=== PATIENT | female | born 1970 | race Caucasian/White ===

== ENCOUNTER 2017-12-02 10:05 | Inpatient (IN) ==
--- NOTE | 2017-12-01 22:37 | Discharge Summary ---
<Yessenia Rizo E - Last Filed: 12/01/17 22:35> Date of Encounter: 12/01/17 - Discharge Diagnosis (1) Osteoarthritis of right knee Priority: Primary Status: Chronic Qualifiers: Osteoarthritis type: unspecified Qualified Code(s): M17.11 - Unilateral primary osteoarthritis, right knee (2) Status post total right knee replacement Priority: Primary Status: Acute (3) Obesity Priority: Secondary Status: Chronic Qualifiers: Obesity type: unspecified obesity type Obesity classification: unspecified obesity classification Serious obesity comorbidity presence: unspecified whether serious comorbidity present Qualified Code(s): E66.9 - Obesity, unspecified (4) Bilateral edema of lower extremity Priority: Secondary Status: Chronic (5) Muscular dystrophy Priority: Secondary Status: Chronic (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 (7) HTN (hypertension) Priority: Secondary Status: Chronic Qualifiers: Hypertension type: unspecified Qualified Code(s): I10 - Essential (primary ) hypertension (8) Anxiety Priority: Secondary Status: Chronic (9) Depression Priority: Secondary Status: Chronic Qualifiers: Depression Type: unspecified Qualified Code(s): F32.9 - Major depressive disorder, single episode, unspecified (10) Sleep related hypoxia Priority: Secondary Status: Chronic (11) Dependence on nocturnal oxygen therapy Priority: Secondary Status: Chronic (12) Chronic pain Priority: Secondary Status: Chronic Qualifiers: Chronic pain type: other chronic pain Qualified Code(s): G89.29 - Other chronic pain - Discharge Medications Home Medications: Aspirin Enteric Coated [Aspirin EC] 325 mg PO DAILY 21 Days #21 tablet. [Rx] OxyCODONE Immed Rel [Roxicodone 5 MG] 5 mg PO Q6-8H PRN 7 Days #24 tablet [Rx] Amitriptyline [Elavil] 50 mg PO HS 12/02/17 [History] Baclofen [Lioresal] 5 mg PO TID 12/02/17 [History] Furosemide [Lasix] 20 mg PO DAILY 12/02/17 [History] Gabapentin [Neurontin] 800 mg PO QID 12/02/17 [History] Medroxyprogesterone Acetate [Provera] 10 mg PO DAILY 12/02/17 [History] Meloxicam [Mobic] 15 mg PO DAILY 12/02/17 [History] Morphine Immed Rel [Morphine Sulfate] 15 mg PO Q8HR 12/02/17 [History] Oxycodone HCl/Acetaminophen [Percocet 10-325 mg Tablet] 1 tab PO BID 12/02/17 [ History] diazePAM [Valium] 5 mg PO BID 12/02/17 [History] Allergies/Adverse Reactions: 3 Allergy/AdvReac Type Severity Reaction Status Date / Time No Known Allergies Allergy Verified 12/02/17 10:50 Primary care physician: Kings Salgado MD - Patient Status Disposition: Transfer Inpatient Rehab Fac Condition: Good - Discharge Instructions Follow Up With: Yessenia Rizo PAC [Physician Cardiovascular Or Nurse] - 12/10/17 2:45 pm (& also, , December 17, 2017 at 2:15 PM) Atul Almanza MD [Partnered Physician] - 12/30/17 5:45 pm Kings Salgado MD [Primary Care Provider] - - Hospital Course Hospital course: Ms. Lewis is a 47 year old female - Time Spent with Patient Total time spent providing and/or coordinating discharge services: <Atul Almanza - Last Filed: 12/05/17 06:50> Date of Encounter: 12/05/17 Time of Encounter: 06:49 - Discharge Diagnosis (1) Morbid obesity with BMI of 45.0-49.9, adult Priority: Secondary Status: Chronic (2) Osteoarthritis of right knee Priority: Primary Status: Chronic Qualifiers: Osteoarthritis type: unspecified Qualified Code(s): M17.11 - Unilateral primary osteoarthritis, right knee (3) Status post total right knee replacement Priority: Primary Status: Acute (4) Bilateral edema of lower extremity Priority: Secondary Status: Chronic (5) Muscular dystrophy Priority: Secondary Status: Chronic (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 (7) HTN (hypertension) Priority: Secondary Status: Chronic Qualifiers: Hypertension type: unspecified Qualified Code(s): I10 - Essential (primary ) hypertension (8) Anxiety Priority: Secondary Status: Chronic (9) Depression Priority: Secondary Status: Chronic Qualifiers: Depression Type: unspecified Qualified Code(s): F32.9 - Major depressive disorder, single episode, unspecified (10) Sleep related hypoxia Status: Chronic (11) Dependence on nocturnal oxygen therapy Priority: Secondary Status: Chronic (12) Chronic pain Priority: Secondary Status: Chronic Qualifiers: Chronic pain type: other chronic pain Qualified Code(s): G89.29 - Other chronic pain Primary care physician: Kings Salgado MD - Patient Status Functional capacity at discharge: uses cane/walker Overall status at discharge: patient is progressing back to baseline - Hospital Course Hospital course: Ms. Lewis is a 47 year old female Status post right total knee replacement The patient had an uneventful postoperative course. They received antibiotics and physical therapy and were discharged in stable condition. There will follow -up in the office in 2 weeks. - Time Spent with Patient Total time spent providing and/or coordinating discharge services:
--- NOTE | 2017-12-02 08:22 | Physician Discharge Referral ---
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 OxyLEV Immed Rel [Roxicodone 5 MG] 5 mg PO Q6-8H PRN 7 Days #24 tablet PRN Reason: Severe Pain Home Medications: Aspirin Enteric Coated [Aspirin EC] 325 mg PO DAILY 21 Days #21 tablet. [Rx] OxyCODONE Immed Rel [Roxicodone 5 MG] 5 mg PO Q6-8H PRN 7 Days #24 tablet [Rx] - Respiratory Orders Smoking Cessation: Smoking cessation has been advised. For more information, call the [place] Tobacco Quit Line at 3-639-QORM-NOW. - Ancillary Orders May use pressure relief devices daily prn, May go on SOPHIA w/family/respon constitution party w /meds at nurse discretion PRN, May consult with Dentist, Core Rescuer, Air Crew Member PRN - Mobility Orders Chair, Ambulate - Rehabiliation Orders Rehab Potential: Good Rehab Orders: Evaluation for Physical Therapy, Evaluation for Occupational Therapy Other: Total Knee replacement Precautions x 6 weeks Apply cold therapy wrap 3-6x/day for 20 minutes at a time. Encourage ambulation throughout the day and incentive spirometer 10x/hour. Elevate affected extremity above heart as tolerated. Brace: Wear knee immobilizer at night x 2 weeks. - Treatments Skin tear care topically daily PRN per policy List/Other: Opsite placed. Keep dressing intact until first follow up appointment. If > 50% saturated, notify office, remove dressing and place appropriate dressing back in place. Leave Zipline intact. Opsite dressing is water resistant, not water- proof. OK to shower, but do not get dressing wet. - Diet Orders Regular CERTIFICATION: I certify that the transfer of the above named patient to an Extended Care Facility is necessary for the continuing treatment of the diagnosis listed. The above information is true and accurate reflection of patient's current condition. Confidential - Redisclosure prohibited without a patient's written consent.
--- NOTE | 2017-12-02 08:27 | Physician Discharge Referral ---
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 For more information, call the [place] Tobacco Quit Line at 3-165-PNEO-NOW. - Dressing/Wound Care Site: right knee Type of Dressing/Treatments w/Frequency: Opsite placed. Keep dressing intact until first follow up appointment. If > 50% saturated, notify office, remove dressing and place appropriate dressing back in place. Leave Zipline intact. Opsite dressing is water resistant, not water- proof. OK to shower, but do not get dressing wet. - Diet/Nutrition Diet/Nutrition Orders: Regular - Activity Activity Orders: Up ad sharath, Ambulate, Chair, Walker Activity: List: Total Knee replacement Precautions x 6 weeks Apply cold therapy wrap 3-6x/day for 20 minutes at a time. Encourage ambulation throughout the day and incentive spirometer 10x/hour. Elevate affected extremity above heart as tolerated. Brace: Wear knee immobilizer at night x 2 weeks. - Services Needed Following services are medically necessary services: Nursing, Home Health Aide, Physical Therapy, Occupational Therapy - Transfer Medications Prescriptions: Aspirin Enteric Coated [Aspirin EC] 325 mg PO DAILY 21 Days #21 tablet. OxyCODONDonavan Immed Rel [Roxicodone 5 MG] 5 mg PO Q6-8H PRN 7 Days #24 tablet PRN Reason: Severe Pain Home Medications: Aspirin Enteric Coated [Aspirin EC] 325 mg PO DAILY 21 Days #21 tablet. [Rx] OxyCODONE Immed Rel [Roxicodone 5 MG] 5 mg PO Q6-8H PRN 7 Days #24 tablet [Rx] Certification: Further, I certify that my clinical findings support that this patient is homebound (i.e. absences from home require considerable and taxing effort and are for medical reasons or roman catholic services or infrequently or short duration when for other reasons) because: Homebound Reason: Post-surgery restriction and or conditions limit ability to leave home Attestation: My signature below is to certify that this patient is under my care and that I, or nurse practitioner, or a physician real estate assistant working with me, has a face-to- face encounter with this patient.
[2017-12-02] MEDS ORDERED: Gabapentin 300 MG CAPSULE PO ONE (10:26)
[2017-12-02] MEDS ORDERED: Famotidine 20 MG/2 ML VIAL IVP ONE (10:26)
[2017-12-02] MEDS ORDERED: Lidocaine -MPF 1% 2 ML VIAL ID ONE (10:51)
[2017-12-02] MEDS ORDERED: CeFAZolin Syr 3,000MG/30 ML 3,000 MG/30 ML SYRINGE IVPB ONE (10:51)
[2017-12-02] MEDS ORDERED: Ringers Solution, Lactated 500 ML IVC SCH (11:00)
[2017-12-02] MEDS ORDERED: *HR* Midazolam HCl 2 MG/2 ML VIAL ONE (11:06)
--- NOTE | 2017-12-02 11:42 | Anesthesia Evaluation PreOp ---
Date of Encounter: 12/02/17 Time of Encounter: 11:40 - Past History Planned Operation: Rt TKA Cardiac History: HTN Pulmonary History: LEXII Dx TAFE LECTURER History: Other (Muscular Dystrophy with Bilat LE weakness) Other Medical History: Other (Morbid Obesity) Anesthesia History: No Prior Anesthetic Complications : No Test: Negative Alcohol Use: none Drug use: none Medications and Allergies Aspirin Enteric Coated [Aspirin EC] 325 mg PO DAILY 21 Days #21 tablet. [Rx] OxyCODONE Immed Rel [Roxicodone 5 MG] 5 mg PO Q6-8H PRN 7 Days #24 tablet [Rx] Amitriptyline [Elavil] 50 mg PO HS 12/02/17 [History] Baclofen [Lioresal] 5 mg PO TID 12/02/17 [History] Furosemide [Lasix] 20 mg PO DAILY 12/02/17 [History] Gabapentin [Neurontin] 800 mg PO QID 12/02/17 [History] Medroxyprogesterone Acetate [Provera] 10 mg PO DAILY 12/02/17 [History] Meloxicam [Mobic] 15 mg PO DAILY 12/02/17 [History] Morphine Immed Rel [Morphine Sulfate] 15 mg PO Q8HR 12/02/17 [History] Oxycodone HCl/Acetaminophen [Percocet 10-325 mg Tablet] 1 tab PO BID 12/02/17 [ History] diazePAM [Valium] 5 mg PO BID 12/02/17 [History] 3 Allergy/AdvReac Type Severity Reaction Status Date / Time No Known Allergies Allergy Verified 12/02/17 10:50 - Meds/Allergy Pre-op Review Medications Reviewed: Yes Allergies Reviewed: Yes Beta Blockers on Current Med List: No Anesthesia Results - Labs HGB 13.0 HCT 40.6 PLT 245 Sodium 137 Pot 3.3 - Imaging EKG: pending Anesthesia Exam O2 Sat Height 1.68 m Height 1.68 m Height 1.68 m Weight 129.274 kg Weight 129.274 kg Weight 129.274 kg O2 Sat by Pulse Oximetry 96 O2 Sat by Pulse Oximetry 96 Vital Signs Temp Pulse Resp BP Pulse Ox 97.9 F 87 18 132/81 96 12/02/17 10:27 12/02/17 10:27 12/02/17 10:27 12/02/17 10:27 12/02/17 10:27 Height: 5'6 Weight: 285 lbs NPO (# of Hours): MN Pain Scale: 0 - HEENT Pupil (Motor): Pupils equal, EOMI Mallampati: III Teeth: Normal Oral Opening: Less than or equal to 3 - TAFE LECTURER LOC: Oriented TAFE LECTURER Motor: Normal Face, Deficit RUE, Deficit LUE, Deficit RLE, Deficit LLE TAFE LECTURER Sensory: Normal: RUE, LUE, RLE, LLE, Face - Cardiac Rhythm: Regular Murmur: None JVD: No Carotid Bruit: No - Pulmonary Breath Sounds: bilateral Clear Respiratory Effort: Symmetrical Anesthesia Assess/Plan ASA Score: 3 (MS Morbid Obesity) Modified Force Scale for Level of Consciousness: Cooperative, oriented, and tranquil Anesthetic Plan: Regional, MAC Monitoring Plan: Standard Monitors Recovery Plan: PACU (Discussed SAB with Adductor Canal Block, possible GA, agrees to proceed)
[2017-12-02] MEDS ORDERED: *HR* FentaNYL (PF) 100 MCG/2 ML VIAL ONE ×2 (11:49→13:33)
--- NOTE | 2017-12-02 11:49 | History & Physical Report ---
Date of Encounter: 12/02/17 Time of Encounter: 11:49 24 Hour HP Update - Instructions Instructions: If the History and Physical is less than 30 days old and was completed prior to A.M. admission and or procedure and has NOT been updated on calendar day of procedure please complete this update prior to performing procedure. - Update Patient reports changes in Medical Condition: No Changes in examination, assessment, or condition: No Changes in Medication: No Preop tests/diagnostics Reviewed: Yes Surgery Remains Indicated: Yes Consent for Planned Operative Procedure(s) Verified: Yes - Pre-Operative Checklist Preoperative Checklist Indicated: No Prophylactic Antibiotic Ordered: Yes Is VTE Prophylaxis Indicated?: Yes
[2017-12-02] MEDS ORDERED: Propofol 500 MG/50 ML INFUS..BTL ONE (11:52)
[2017-12-02] MEDS ORDERED: *HR* Ropivacaine/PF 0.5% 20 ML VIAL ONE (12:25)
[2017-12-02] MEDS ORDERED: Ethanol\\Acetic Acid\\Na Ace\\Ben 1,000 ML IRRIG.SOLN IR ONE (12:28)
[2017-12-02] MEDS ORDERED: Tetracaine/PF 20 MG/2 ML AMPUL ONE (12:29)
[2017-12-02] MEDS ORDERED: *HR* OxyCODONE Immed Rel 5 MG TABLET PO PRN (13:34)
[2017-12-02] MEDS ORDERED: *HR* Labetalol 20 MG/4 ML SYRINGE IVP PRN (13:34)
[2017-12-02] MEDS ORDERED: Ondansetron 4 MG/2 ML VIAL IVP ONE (13:34)
--- NOTE | 2017-12-02 13:46 | Anesthesia Procedures ---
Date of Encounter: 12/02/17 Time of Encounter: 13:44 Procedures: Anesthesia - Nerve Block Procedure Date: 12/02/17 Time: 13:15 Allergies/Adv Reactions: 3 Allergy/AdvReac Type Severity Reaction Status Date / Time No Known Allergies Allergy Verified 12/02/17 10:50 Pre-op Diagnosis: oa right knee Surgical Procedure: right tka Checklist: Correct Patient Identifier, Correct procedure, History checked Correct side: Right Blood Thinner: No Monitor Applied: EKG, BP, Pulse Oximetry Supplemental Oxygen via Nasal Cannula (L/min): 2 Sedation: Versed (mg): 2 Sedation: Fentanyl (mcg): 100 Indication: Post Op Analgesia Block Type: Femoral Catheter placed: No Sterile Technique: Yes Ultrasound used: Yes Anatomy identified: Yes Visual spread of Local: Yes Neuro Stimulation: Yes Nerve Stimulator Range: 0.2 - 0.4 mA Blood on Needle Aspiration: No Smooth Injection of Local: Yes Pain with Injection of Local: No Prep: Chlorhexadine Needle: 21 x 100 mm Stimuplex Local: Ropivacaine (0.5%) Volume (cc): 40 Number of Attempts: 1 Complications: None/effective block
[2017-12-02] MEDS ORDERED: Dexamethasone 4 MG/ML VIAL ONE (13:56)
[2017-12-02] MEDS ORDERED: Ondansetron 4 MG/2 ML VIAL ONE (13:56)
[2017-12-02] MEDS ORDERED: Ketorolac 30 MG/ML VIAL ONE (13:56)
--- NOTE | 2017-12-02 13:57 | Orthopedic Operative Note ---
Date of procedure: 12/02/17 Pre-op diagnosis: Right knee arthritis Post-op diagnosis: same Procedure: Procedure: Right robotic-assisted Total knee replacement Estimated blood loss:400 cc Hardware: Metal and polyethylene replacement. [place] Femur: 4 Tibia: 4 TS insert: 13 Patella: 3 Exam Under anesthesia: 0 degrees extension to degrees varus as calculated by the robot full flexion and no instability Procedural Notes: Grade 3 arthritic changes all 3 compartments. Operative procedure: The patient was brought to the operating room and placed on the operating room table. After general anesthesia was administered the operative knee was examined. Findings were noted in the exam under anesthesia. The operative extremity was prepped and draped in sterile surgical fashion. The patient received IV antibiotics prior to skin incision. A standard midline incision was made centered over the patella. The incision was made through the skin and subcutaneous tissue. A medial parapatellar tendon approach was performed. Care was taken to preserve tissue along the medial aspect of the patella. And to protect the patella tendon. The deep MCL was released off the medial tibia. The infra patella fat pad was excised. The patella was everted and cut was made at the level of the insertion of the quadriceps and patella tendon. The patella was sized to a 36 the guide was seated and the lug holes are drilled. Knee was brought into flexion. Patient noted to have grade 3 arthritic changes all 3 components. Steinmann pins were placed in the tibia and the femur for the tibial and femoral arrays respectively. Checkpoints were also placed in the tibia and the femur for calculation purposes. The knee including the femur and the tibial registered. Osteophytes, ACL and PCL were excised at this point. Extension and flexion were assessed with a valgus stress components were adjusted on the computer to balance the knee. Femoral cuts were made first with robotic assistance, these included the anterior cut posterior cuts chamfer cuts. Tibial cut was then performed with robotic assistance as well. Bone fragments were removed, as well as the medial and lateral meniscus. The size 4 femoral guide was seated box cut was made lug holes are drilled. The size 4 tibial tray was seated and prepared with the fin cutter. Trial reduction with the 13 TS Jinny revealed extension of 0 degree 2 degrees varus and full flexion. No varus valgus instability. Trial reduction revealed excellent patella tracking. All trial components were removed all bony surfaces were irrigated. The Tibia was seated followed by the femur, The Jinny size 13 was seated and secured patella. Patient had similar findings for motion and stability. The knee was closed by the PA. The knee was then irrigated out with 2 L of pulse irrigation. The extensor mechanism was closed with #2 FiberWire suture and #2 PDS suture. The subcutaneous tissue was then irrigated and closed deep with #1 PDS suture superficially with 0 PDS suture and skin was closed with zip tie The patient was then placed in a sterile dressing and a postoperative brace extubated and transferred to recovery room in stable condition. Anesthesia: GETA Surgeon: Atul Almanza Was there an tmd teacher assistant present: No Estimated blood loss (cc): 400 Condition: stable Disposition: PACU
--- NOTE | 2017-12-02 15:09 | Anesthesia Evaluation Post Op ---
Date of Encounter: 12/02/17 Time of Encounter: 15:15 - Vital Signs Vital Signs: Vital Signs/O2 Sat/Glucose, Most Current Temp Pulse Resp BP Pulse Ox 12/02/17 15:08 97.5 F L 84 16 141/87 97 12/02/17 14:58 85 14 140/86 96 12/02/17 14:48 89 14 145/95 96 12/02/17 14:38 97.2 F L 98 14 140/91 92 12/02/17 12:49 93 18 136/102 100 12/02/17 12:42 95 18 150/89 100 12/02/17 12:37 86 18 145/94 100 12/02/17 12:35 89 18 139/93 100 12/02/17 12:25 90 18 144/92 100 - Lungs Lungs: Clear Ascult./Percussion - Airway Airway: Non-obstructed - Cardiovascular Regular Rate - Mental Status Mental Status: Alert & Oriented, Answers Appropriately - Pain Pain Scale: 0 - Nausea Vomiting Nausea Vomiting: Not Present - Hydration Hydration: Tolerates oral liquids - Discharge PostOp Status: Transfer Patient to floor
[2017-12-02] MEDS ORDERED: Temazepam 15 MG CAPSULE PO PRN (15:24)
[2017-12-02] MEDS ORDERED: Ringers Solution, Lactated 1,000 ML IVC SCH (15:24)
[2017-12-02] MEDS ORDERED: Sennosides 8.6 MG TABLET PO PRN (15:24)
[2017-12-02] MEDS ORDERED: MOM Conc 10 ML UD.LIQ PO PRN (15:24)
[2017-12-02] MEDS ORDERED: Naloxone 0.4 MG/ML INJ IVP PRN (15:24)
[2017-12-02] MEDS ORDERED: Ondansetron 4 MG/2 ML VIAL IVP PRN (15:24)
[2017-12-02 15:25] LABS: Hematocrit 41.5 % (35.3-44.9); Hemoglobin 12.2 g/dL (11.5-15.4)
[2017-12-02] MEDS ORDERED: *HR* Morphine Immed Rel 15 MG TABLET PO SCH (16:00)
[2017-12-02] MEDS: Gabapentin 400 MG CAPSULE PO SCH ×2 (17:33→21:20)
[2017-12-02] MEDS: Baclofen 10 MG TABLET PO SCH ×2 (17:33→21:19)
[2017-12-02] MEDS: *HR* Enoxaparin 30 MG/0.3 ML SYRINGE SQ SCH (17:33)
[2017-12-02] MEDS ORDERED: *HR* Enoxaparin 30 MG/0.3 ML SYRINGE SQ SCH (18:00)
[2017-12-02] MEDS ORDERED: *HR* Morphine Immed Rel 30 MG TABLET PO SCH (18:30)
[2017-12-02] MEDS: *HR* Morphine Immed Rel 30 MG TABLET PO SCH (18:35)
[2017-12-02] MEDS: *HR* OxyCODONE/APAP 10/325 TABLET PO SCH (21:19)
[2017-12-02] MEDS: diazePAM 5 MG TABLET PO SCH (21:20)
[2017-12-02] MEDS: CeFAZolin Syr 3,000MG/30 ML 3,000 MG/30 ML SYRINGE IVPB SCH (21:20)
[2017-12-03] MEDS: *HR* Morphine Immed Rel 30 MG TABLET PO SCH ×3 (03:19→19:02)
[2017-12-03 05:22] LABS: Hematocrit 33.7 % (35.3-44.9); Hemoglobin 10.2 g/dL (11.5-15.4)
[2017-12-03] MEDS: *HR* Enoxaparin 30 MG/0.3 ML SYRINGE SQ SCH ×2 (05:24→17:15)
[2017-12-03] MEDS: CeFAZolin Syr 3,000MG/30 ML 3,000 MG/30 ML SYRINGE IVPB SCH (05:24)
[2017-12-03 06:25] LABS: BUN/Creatinine Ratio 20 (6-26); Blood Urea Nitrogen 11 mg/dL (6-20); Calcium 8.5 mg/dL (8.6-10.3); Carbon Dioxide 30 mEq/L (23-29); Chloride 105 mEq/L (98-107); Glucose 118 mg/dL (70-105); Osmolality,Calculated 288 (280-300); Potassium 4.3 mEq/L (3.5-5.1); Sodium 139 mEq/L (136-145); eGFR For African Americans > 60 (> 60); eGFR For Non-African Americans > 60 (> 60)
--- NOTE | 2017-12-03 08:37 | Orthopedics Progress Note ---
Date of Encounter: 12/03/17 Time of Encounter: 08:36 - Assessment and Plan (1) Morbid obesity with BMI of 45.0-49.9, adult Current Visit: Yes Status: Chronic (2) Osteoarthritis of right knee Current Visit: No Status: Chronic Qualifiers: Osteoarthritis type: unspecified Qualified Code(s): M17.11 - Unilateral primary osteoarthritis, right knee (3) Status post total right knee replacement Current Visit: No Status: Acute (4) Bilateral edema of lower extremity Current Visit: No Status: Chronic (5) Muscular dystrophy Current Visit: No Status: Chronic (6) Dercum's disease Current Visit: No Status: Chronic (7) HTN (hypertension) Current Visit: No Status: Chronic Qualifiers: Hypertension type: unspecified Qualified Code(s): I10 - Essential (primary ) hypertension (8) Anxiety Current Visit: No Status: Chronic (9) Depression Current Visit: No Status: Chronic Qualifiers: Depression Type: unspecified Qualified Code(s): F32.9 - Major depressive disorder, single episode, unspecified (10) Sleep related hypoxia Current Visit: No Status: Chronic (11) Dependence on nocturnal oxygen therapy Current Visit: No Status: Chronic (12) Chronic pain Current Visit: No Status: Chronic Qualifiers: Chronic pain type: other chronic pain Qualified Code(s): G89.29 - Other chronic pain Subjective Interval history: Patient was seen this morning doing well without complaints. Afebrile vital signs stable. Operative extremity: Neurovascularly intact Dressing clean dry and intact Calves nontender Assessment and plan: Continue with postoperative care Hematocrit 33 Objective Vital signs: Vital Signs Temp Pulse Resp BP Pulse Ox 12/03/17 06:33 98.4 F 68 16 104/68 99 12/03/17 03:41 98.2 F 63 16 100/64 100 12/03/17 01:08 97.8 F 63 18 107/71 97 12/02/17 19:54 98.3 F 84 16 111/71 96 12/02/17 18:38 98.4 F 85 17 121/79 96 12/02/17 17:50 98.0 F 86 16 136/83 98 12/02/17 16:55 98.0 F 85 16 131/80 98 12/02/17 16:16 97.9 F 85 15 126/77 97 12/02/17 15:50 97.9 F 84 15 121/73 99 12/02/17 15:08 97.5 F L 84 16 141/87 97 12/02/17 14:58 85 14 140/86 96 12/02/17 14:48 89 14 145/95 96 12/02/17 14:38 97.2 F L 98 14 140/91 92 12/02/17 12:49 93 18 136/102 100 12/02/17 12:42 95 18 150/89 100 12/02/17 12:37 86 18 145/94 100 12/02/17 12:35 89 18 139/93 100 12/02/17 12:25 90 18 144/92 100 12/02/17 11:00 97.9 F 87 18 132/81 96 12/02/17 10:27 97.9 F 87 18 132/81 96 Intake and Output 12/02/17 12/03/17 12/03/17 23:59 07:59 15:59 Intake Total 630 / 630 0 / 0 Output Total 0 / 0 0 / 0 Balance 630 / 630 0 / 0 Intake: IV Fluids 30 / 30 Ancef Syringe 3,000 MG/30 ML 3, 30 / 30 000 mg In 30 ml @ 200 mls/hr IVPB Q8H [facility] Rx#:[id number] Oral 600 / 600 0 / 0 Output: Urine 0 / 0 0 / 0 - Labs CBC & BMP: 12/03/17 04:54 12/03/17 04:54 Labs: Abnormal lab results Hgb 10.2 g/dL (11.5-15.4) L D 12/03/17 04:54 Hct 33.7 % (35.3-44.9) L 12/03/17 04:54 Carbon Dioxide 30 mEq/L (23-29) H 12/03/17 04:54 Creatinine 0.56 mg/dL (0.60-1.20) L 12/03/17 04:54 Glucose 118 mg/dL (70-105) H 12/03/17 04:54 Calcium 8.5 mg/dL (8.6-10.3) L 12/03/17 04:54 - VTE Documentation of Mechanical Device: Venous foot pump, device Consult Discharge Plan - Plan Referrals: Kings Salgado MD [Primary Care Provider] -
[2017-12-03] MEDS: Baclofen 10 MG TABLET PO SCH ×3 (10:12→20:39)
[2017-12-03] MEDS: *HR* OxyCODONE/APAP 10/325 TABLET PO SCH ×2 (10:12→22:28)
[2017-12-03] MEDS: diazePAM 5 MG TABLET PO SCH ×2 (10:12→20:39)
[2017-12-03] MEDS: Furosemide 20 MG TABLET PO SCH (10:12)
[2017-12-03] MEDS: Gabapentin 400 MG CAPSULE PO SCH ×4 (10:12→20:39)
--- NOTE | 2017-12-03 18:31 | Event Note ---
Date of Encounter: 12/03/17 Time of Encounter: 13:00 PCR- POD#1 R TKR robotic Archie 12/02/17 PCR - Patient seen at bedside. Pain control: Adequate Participating in PT. All questions and concerns addressed. Educated on use of incentive spirometer, ambulation, and hydration. Patient educated on post-operative restrictions and care. Addressed: see above. D/C plan: YOHANA
--- NOTE | 2017-12-03 21:57 | Electrocardiograph Report ---
[place] [id number] Test Date: 2017-12-02 Pat Name: Angela Lewis Department: 106 Room: [facility] Gender: F Special Needs Caregiver: TAYLOR : 1970 Requested By: Austin Henning Order Number: [id number] Reading MD: Collin Purvis MD Measurements Intervals [place] Rate: 75 P: 8 IA: 189 QRS: 9 QRSD: 97 T: 1 QT: 380 QTc: 409 Interpretive Statements SINUS RHYTHM Electronically Signed On 12-03-2017 21:55:40 EST by Collin Purvis MD
[2017-12-04] MEDS: *HR* Morphine Immed Rel 30 MG TABLET PO SCH ×3 (02:54→18:14)
[2017-12-04 03:54] LABS: Hematocrit 31.7 % (35.3-44.9)
[2017-12-04 04:03] LABS: Hemoglobin 9.5 g/dL (11.5-15.4)
[2017-12-04 04:20] LABS: BUN/Creatinine Ratio 25 (6-26); Blood Urea Nitrogen 13 mg/dL (6-20); Calcium 8.3 mg/dL (8.6-10.3); Carbon Dioxide 28 mEq/L (23-29); Chloride 103 mEq/L (98-107); Glucose 114 mg/dL (70-105); Osmolality,Calculated 285 (280-300); Potassium 3.7 mEq/L (3.5-5.1); Sodium 137 mEq/L (136-145); eGFR For African Americans > 60 (> 60); eGFR For Non-African Americans > 60 (> 60)
[2017-12-04] MEDS: *HR* Enoxaparin 30 MG/0.3 ML SYRINGE SQ SCH ×2 (05:07→16:35)
--- NOTE | 2017-12-04 08:03 | Orthopedics Progress Note ---
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 (7) HTN (hypertension) Current Visit: No Status: Chronic Qualifiers: Hypertension type: unspecified Qualified Code(s): I10 - Essential (primary ) hypertension (8) Anxiety Current Visit: No Status: Chronic (9) Depression Current Visit: No Status: Chronic Qualifiers: Depression Type: unspecified Qualified Code(s): F32.9 - Major depressive disorder, single episode, unspecified (10) Sleep related hypoxia Current Visit: No Status: Chronic (11) Dependence on nocturnal oxygen therapy Current Visit: No Status: Chronic (12) Chronic pain Current Visit: No Status: Chronic Qualifiers: Chronic pain type: other chronic pain Qualified Code(s): G89.29 - Other chronic pain Subjective Interval history: Patient was seen this morning doing well without complaints. Afebrile vital signs stable. Operative extremity: Neurovascularly intact Dressing clean dry and intact Calves nontender Assessment and plan: Continue with postoperative care Hematocrit 31 Objective Vital signs: Vital Signs Temp Pulse Resp BP Pulse Ox 12/04/17 06:22 99.4 F 97 20 125/79 93 12/04/17 02:55 99.0 F 100 16 128/79 12/04/17 00:15 99.2 F 105 17 103/69 95 12/03/17 19:05 100 F H 109 20 112/71 96 12/03/17 14:10 98.1 F 110 16 127/73 98 Intake and Output 12/03/17 12/04/17 12/04/17 23:59 07:59 15:59 Intake Total 150 / 150 350 / 350 Output Total 550 / 550 Balance 150 / 150 -200 / -200 Intake: Oral 150 / 150 350 / 350 Output: Urine 550 / 550 - Labs CBC & BMP: 02/16/18 03:08 12/04/17 03:08 Labs: Abnormal lab results Hgb 9.5 g/dL (11.5-15.4) L 12/04/17 03:08 Hct 31.7 % (35.3-44.9) L 12/04/17 03:08 Creatinine 0.52 mg/dL (0.60-1.20) L 12/04/17 03:08 Glucose 114 mg/dL (70-105) H 12/04/17 03:08 Calcium 8.3 mg/dL (8.6-10.3) L 12/04/17 03:08 - VTE Documentation of Mechanical Device: Venous foot pump, device Consult Discharge Plan - Plan Referrals: Yessenia Rizo, SHERWIN [Physician Stemming Machine Operator] - 12/10/17 2:45 pm (& also, , December 17, 2017 at 2:15 PM) Atul Almanza MD [Partnered Physician] - 12/30/17 5:45 pm Kings Salgado MD [Primary Care Provider] -
[2017-12-04] MEDS: diazePAM 5 MG TABLET PO SCH ×2 (09:12→20:29)
[2017-12-04] MEDS: Furosemide 20 MG TABLET PO SCH (09:12)
[2017-12-04] MEDS: Baclofen 10 MG TABLET PO SCH ×3 (09:12→20:30)
[2017-12-04] MEDS: Gabapentin 400 MG CAPSULE PO SCH ×4 (09:12→20:30)
[2017-12-04] MEDS: *HR* OxyCODONE/APAP 10/325 TABLET PO SCH ×2 (09:12→20:29)
--- NOTE | 2017-12-04 17:10 | Event Note ---
Date of Encounter: 12/04/17 Time of Encounter: 12:25 PCR- POD#2 R TKR robotic Archie 12/02/17 PCR - Patient seen at bedside. Pain control: still complaining of pain overall especially with therapy but control seems to be adequate right now at rest Participating in PT. All questions and concerns addressed. Educated on use of incentive spirometer, ambulation, and hydration. Patient educated on post-operative restrictions and care. Addressed: see above. D/C plan: home with home health tomorrow
[2017-12-05] MEDS: *HR* Morphine Immed Rel 30 MG TABLET PO SCH ×2 (03:53→10:45)
[2017-12-05] MEDS: *HR* Enoxaparin 30 MG/0.3 ML SYRINGE SQ SCH (06:27)
--- NOTE | 2017-12-05 06:50 | Orthopedics Progress Note ---
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 (7) HTN (hypertension) Current Visit: No Status: Chronic Qualifiers: Hypertension type: unspecified Qualified Code(s): I10 - Essential (primary ) hypertension (8) Anxiety Current Visit: No Status: Chronic (9) Depression Current Visit: No Status: Chronic Qualifiers: Depression Type: unspecified Qualified Code(s): F32.9 - Major depressive disorder, single episode, unspecified (10) Sleep related hypoxia Current Visit: No Status: Chronic (11) Dependence on nocturnal oxygen therapy Current Visit: No Status: Chronic (12) Chronic pain Current Visit: No Status: Chronic Qualifiers: Chronic pain type: other chronic pain Qualified Code(s): G89.29 - Other chronic pain Subjective Interval history: Patient was seen this morning doing well without complaints. Afebrile vital signs stable. Operative extremity: Neurovascularly intact Dressing clean dry and intact Calves nontender Assessment and plan: Continue with postoperative care Discharge today Objective Vital signs: Vital Signs Temp Pulse Resp BP Pulse Ox 12/05/17 06:41 99.0 F 102 17 112/66 90 12/05/17 03:48 99.5 F 100 16 105/59 90 12/04/17 23:40 98.2 F 94 16 100/65 91 12/04/17 20:00 99 12/04/17 19:39 98.2 F 104 16 122/67 99 12/04/17 15:02 98.9 F 95 20 126/75 93 12/04/17 10:39 98.6 F 86 20 124/74 99 Intake and Output 12/04/17 12/04/17 12/05/17 15:59 23:59 07:59 Intake Total 340 / 340 100 / 100 Balance 340 / 340 100 / 100 Intake: Oral 340 / 340 100 / 100 Other: Meal Lunch Percent of Meal Consumed 10% # Voids 2 - Labs CBC & BMP: 12/04/17 03:08 12/04/17 03:08 Labs: Abnormal lab results Hgb 9.5 g/dL (11.5-15.4) L 12/04/17 03:08 Hct 31.7 % (35.3-44.9) L 12/04/17 03:08 Creatinine 0.52 mg/dL (0.60-1.20) L 12/04/17 03:08 Glucose 114 mg/dL (70-105) H 12/04/17 03:08 Calcium 8.3 mg/dL (8.6-10.3) L 12/04/17 03:08 - VTE Documentation of Mechanical Device: Venous foot pump, device Consult Discharge Plan - Plan Referrals: Yessenia Rizo, PAC [Physician Black Belt] - 12/10/17 2:45 pm (& also, , December 17, 2017 at 2:15 PM) Atul Almanza MD [Partnered Physician] - 12/30/17 5:45 pm Kings Salgado MD [Primary Care Provider] -
[2017-12-05] MEDS: Furosemide 20 MG TABLET PO SCH (08:30)
[2017-12-05] MEDS: Gabapentin 400 MG CAPSULE PO SCH (08:38)
[2017-12-05] MEDS: Baclofen 10 MG TABLET PO SCH (08:39)
[2017-12-05] MEDS: *HR* OxyCODONE/APAP 10/325 TABLET PO SCH (08:39)
[2017-12-05] MEDS: diazePAM 5 MG TABLET PO SCH (10:01)
[2017-12-05 10:44] VITALS: BP 106/62
== END 2017-12-05 13:12 | DRG 470 ==
LOC: SAMDAY 10:05 → 3NENU 15:17
PROVIDERS: ADMIT Orthopaedic Surgery; ATTEND Orthopaedic Surgery